=== PATIENT | female | born 1960 | race Caucasian/White ===

== ENCOUNTER 2017-08-31 09:57 | Day surgery (SDC) | payer BC ==
[2017-08-31 10:47] LABS: HEMATOCRIT 40.8 % (36.0-47.0); HEMOGLOBIN 14.1 g/dL (12.0-15.5); MEAN CORPUSCULAR HEMOGLOBIN 31.8 pg (27.0-33.4); MEAN CORPUSCULAR HGB CONC 34.5 g/dL (32.0-36.0); MEAN CORPUSCULAR VOLUME 92 fl (80-97); PLATELET COUNT 143 10^3/uL (150-450); RED BLOOD COUNT 4.42 10^6/uL (3.72-5.28); WHITE BLOOD COUNT 5.7 10^3/uL (4.0-10.5)
[2017-08-31] MEDS ORDERED: PROPOFOL INJ 200 MG/20 ML VIAL IV ONE ×2 (12:03→14:05)
--- NOTE | 2017-08-31 14:04 | Operative Report ---
Operative Report DATE OF SURGERY: 08/31/17 PREOPERATIVE DIAGNOSIS: Hx of colon polyp POSTOPERATIVE DIAGNOSIS: same with internal hemorrhoids, and left colon polyp OPERATION: Total colonoscopy to cecum. Left colon polypectomy SURGEON: STEPHANIE KNIGHT ANESTHESIA: LMAC TISSUE REMOVED OR ALTERED: polyp COMPLICATIONS: none ESTIMATED BLOOD LOSS: none INTRAOPERATIVE FINDINGS: see below PROCEDURE: Obtaining informed consent the patient was taken from the preoperative holding area to the main endoscopy suite where monitoring devices were attached to the patient. Plan and surgical timeout were conducted The patient was placed in the left lateral decubitus position with knees to chest. A perianal examination was performed. There was no visible or palpable anorectal pathology. Internal hemorrhoids appreciated, collapsed. Sphincter tone was felt to be normal. The flexible adult colonoscope was advanced through the anal rectal canal, all the way to the cecum. Visualization of the cecum was achieved and the ileocecal valve, the appendiceal orifice and transillumination of the anterior abdominal wall. This was an excellent study on the well-prepped bowel. The colonoscope was withdrawn slowly and methodically checked and the mucosa carefully. There was no evidence of tumor, stricture, bleeding was a small polyp in the descending colon which was removed using the cold snare and retrieved and sent to pathology as same. Bleeding minimal. There was no evidence of diverticuloses. The scope was slowly withdrawn through the anal rectal canal. Internal hemorrhoids appreciated. Complete visualization of the rectum was achieved with photodocumentation. The scope was withdrawn to the patient's anus. The patient tolerated the procedure well and was taken to the recovery area in stable condition. Per surveillance guidelines, patient will be appropriate candidate for follow- up colonoscopy in 3 years.
--- NOTE | 2017-08-31 15:01 | Discharge Summary ---
Discharge Summary (SDC) - Discharge Final Diagnosis: Colon polyp Date of Surgery: 08/31/17 Discharge Date: 08/31/17 Condition: Good Forms: ASU Anesthesia D/C Instruction, Discharge POC-Surgical Service Referrals: STEPHANIE KNIGHT MD [ACTIVE STAFF] - 09/15/17 1:15 pm Respiratory Treatments at Home: Deep Breathing/Coughing Discharge Activity: Activity As Tolerated, No Driving Home Care Assistance: None Needed Report the Following to Your Physician Immediately: Shortness of Breath, Nausea , Vomiting, Increase in Pain, Fever over 101 Degrees, Unusual Bleeding, Redness , Warmth, Drainage-Yellow, Drainage-Green, Large Clots, Numbness, Wheezing, IV Site Infection Signs, Urinary Infection Signs
[2017-08-31 15:13] VITALS: BP 116/71
== END 2017-08-31 15:30 | disposition home or self-care (01) ==
LOC: OROUT 09:57
PROVIDERS: ATTEND Surgery
DX: Z12.11 Encounter for screening for malignant neoplasm of colon (principal); D12.6 Benign neoplasm of colon, unspecified; K64.8 Other hemorrhoids; Z86.010 Personal history of colon polyps; I10 Essential (primary) hypertension; K21.9 Gastro-esophageal reflux disease without esophagitis; M54.9 Dorsalgia, unspecified; Z87.891 Personal history of nicotine dependence; Z79.899 Other long term (current) drug therapy; Z80.0 Family history of malignant neoplasm of digestive organs; Z01.818 Encounter for other preprocedural examination; E66.9 Obesity, unspecified; Z68.31 Body mass index [BMI] 31.0-31.9, adult
CPT/HCPCS: 45380; 36415; 85027; 88305 ×2; J2704; 812